=== PATIENT | male | born 1955 | race Caucasian/White ===

== ENCOUNTER → 2022-10-18 10:38 | Outpatient (CLI) | payer MEDICARE, SELFPAY ==
--- NOTE | 2022-10-18 | DI.NM.S_ITS ---
PROCEDURE: NM JERMAINE PERF SPECT R&S PHARM Rest and pharmacological stress myocardial perfusion SPECT with gated imaging and ejection fraction RADIOPHARMACEUTICAL: 11.1 mCi Tc-99m tetrafosmin IV at rest and 26.0 mCi Tc-99m tetrafosmin IV at peak effect of pharmacological stress. [id number] was performed. INDICATIONS: Other fatigue TECHNIQUE: Radiopharmaceutical was injected at peak stress test, and also at rest. SPECT images were obtained. SPECT myocardial perfusion images were displayed in short axis, horizontal long axis, and vertical long axis views. Gated images were reviewed using HDmessaging software. COMPARISON: None. CARDIAC STRESS: A pharmacologic stress test was performed under the supervision of an attending staff, using an infusion of lexiscan. Hemodynamic data: There is normal blood pressure and heart rate response to pharmacologic stress. Symptoms: The patient denied anginal chest pain. Aminophylline: none EKG: Mild ST depressions in the inferior lead with exercise. Frequent PVCs with exercise. FINDINGS: Raw data: There is good myocardial uptake of radiotracer. No significant motion artifacts. Bsmz-jc-[id number] ratio is 0.24 (normal is less than 0.38 for tetrafosmin tracer). Left ventricle function: Gated images demonstrate normal left ventricular wall thickening. No segmental wall motion abnormalities. No transient ischemic dilation; TID is 0.87 (normal less than 1.3). Left ventricle resting end diastolic volume is 151 mL. Left ventricle stress ejection fraction is 64%; normal range is above 45%. Myocardial perfusion: There is a moderately intense apical defect at rest that improves with stress and further improves with prone imaging, suggesting artifact but old non-transmural infarction can't be excluded. IMPRESSION: Low risk, probably normal nuclear stress test 1) There is a moderately intense apical defect at rest that improves with stress and further improves with prone imaging, suggesting artifact but old small non-transmural infarction can't be definitively excluded. No ischemia. 2) Enlarged left ventricle (LVEDV 151cc) with normal wall motion and normal systolic function (EF 65% post stress). 3) Mild ST depressions in the inferior lead with exercise. These changes are non-diagnostic in the setting of reassuring perfusion images. 4) Frequent PVCs with exercise. 5) No angina during the study. 6) Mildly reduced exercise capacity (7.0METs, [place] +13%). Adequate stress test based on double product [place] 58740. Study was switched to lexiscan as only 82% of maximum predicted heart rate achieved. 7) No prior nuclear stress test available for comparison. Dictated by: Vladislav Worthington MD on 10/19/2022 at 13:40 Approved by: Vladislav Worthington MD on 10/19/2022 at 13:45
== END ==
PROVIDERS: Family Provider Student in an Organized Health Care Education/Training Program; PCP Student in an Organized Health Care Education/Training Program; Referring Provider Student in an Organized Health Care Education/Training Program; Visit Provider Student in an Organized Health Care Education/Training Program
DX: R53.83 Other fatigue (principal); R00.1 Bradycardia, unspecified; Z72.0 Tobacco use
CPT/HCPCS: 78452; 93017; A9502; J2785